=== PATIENT | female | born 1990 | race African-American/Black ===

== ENCOUNTER 2019-03-04 12:46 | Emergency (ER) | payer MEDICAID ==
[~2019-03-04] VITALS: Ht 167.6 cm; Wt 105.0 kg
[2019-03-04] MEDS ORDERED: SODIUM CHLORIDE 0.9% 500 ML IV ONE (14:00)
[2019-03-04 14:23] LABS: BASOPHILS % 0.4 % (0.0-2.0); HEMATOCRIT. 35.3 % (36.0-48.0); HEMOGLOBIN. 11.9 g/dL (12.0-16.0); LYMPHOCYTES % 8.4 % (20.0-50.0); MEAN CORPUSCULAR HEMOGLOBIN 31.2 pg (28.0-32.0); MEAN CORPUSCULAR VOLUME 92.4 fL (81.0-99.0); MEAN PLATELET VOLUME 8.5 fl (7.4-10.4); MONOCYTES % 5.8 % (2.0-8.0); NEUTROPHILS % 85.4 % (40.0-76.0); PLATELET 201 x1000/uL (130-400); RED BLOOD CELL COUNT 3.82 mill/uL (4.2-5.4); RED CELL DISTRIBUTION WIDTH 13.4 % (11.6-14.6)
[2019-03-04 14:27] LABS: CHLORIDE 104 mEq/L (98-107)
[2019-03-04 14:28] LABS: CLARITY URINE CLOUDY (CLEAR); COLOR URINE YELLOW (YELLOW); KETONES URINE 2+ (NEGATIVE); LEUKOCYTE ESTERASE URINE 2+ (NEGATIVE); NITRITE URINE NEGATIVE (NEGATIVE); OCCULT BLOOD URINE NEGATIVE (NEGATIVE); PH URINE 5.5 (4.5-8.0); PROTEIN URINE NEGATIVE (NEGATIVE); SPECIFIC GRAVITY URINE 1.027 (1.005-1.030); UROBILINOGEN URINE 0.2 E.U./dL (0.2-1.0)
[2019-03-04 14:41] LABS: *AMPHETAMINES SCREEN URINE NEGATIVE (NEGATIVE)
[2019-03-04 14:42] LABS: *BARBITURATES SCREEN URINE NEGATIVE (NEGATIVE); *BENZODIAZEPINES SCREEN URINE NEGATIVE (NEGATIVE); *COCAINE SCREEN URINE NEGATIVE (NEGATIVE); METHADONE URINE SCREEN NEGATIVE (NEGATIVE); OPIATES URINE SCREEN NEGATIVE (NEGATIVE); PHENCYCLIDINE URINE SCREEN NEGATIVE (NEGATIVE)
[2019-03-04 14:43] LABS: CANNABINOID URINE SCREEN NEGATIVE (NEGATIVE)
[2019-03-04 14:50] LABS: B-HCG QUANTITATIVE 22426 mIU/mL (<3)
[2019-03-04] MEDS ORDERED: NITROFURANTOIN 100MG M/M CAPSULE PO ONE (16:30)
[2019-03-04 16:46] VITALS: BP 120/61
== END 2019-03-04 16:49 | disposition home or self-care (01) ==
LOC: ER 13:14
DX: O23.41 Unspecified infection of urinary tract in pregnancy, first trimester (principal); O26.831 Pregnancy related renal disease, first trimester; N28.9 Disorder of kidney and ureter, unspecified; O26.891 Other specified pregnancy related conditions, first trimester; R06.02 Shortness of breath; R42 Dizziness and giddiness; D72.828 Other elevated white blood cell count; R73.9 Hyperglycemia, unspecified; O99.011 Anemia complicating pregnancy, first trimester; D64.9 Anemia, unspecified; Z3A.01 Less than 8 weeks gestation of pregnancy
CPT/HCPCS: 36415; 76801; 76817; 80053; 80305; 81003; 81025; 82962; 84702; 85025; 96360; 99284; J7040; Z7610

== ENCOUNTER 2025-08-30 18:31 | Emergency (ER) | payer BC, MEDICAID ==
[~2025-08-30] VITALS: Ht 172.7 cm; Wt 100.0 kg
[2025-08-30 18:32] VITALS: O2SAT 99
[2025-08-30 18:35] VITALS: BP 128/78; PULSE 79; RESP 16; TEMP 36.8; O2SAT 100
[2025-08-30] MEDS ORDERED: IBUP-2028 MT (21:28)
== END 2025-08-30 22:16 | disposition home or self-care (01) ==
LOC: ER 18:31
DX: M79.672 Pain in left foot (principal); Z98.890 Other specified postprocedural states
CPT/HCPCS: 73630; 99283; Z7610 ×2